=== PATIENT | female | born 1990 | race Caucasian/White ===

== ENCOUNTER 2019-11-15 16:22 | Emergency (ER) | payer OTHER, SELFPAY ==
[2019-11-15 16:31] VITALS: BP 140/78; PULSE 102; RESP 18; TEMP 36.9; O2SAT 99
[2019-11-15] MEDS: TETANUS,DIPHTHERIA,AC PERTUSSIS ADULT 0.5 ML (ADACEL) IM (16:42)
--- NOTE | 2019-11-15 16:42 | ED.LOWEXIN ---
HPI - Extremity Injury (Lower) General Chief Complaint: Extremity Injury, Lower Stated Complaint: foot injury Time Seen by Provider: 11/15/19 16:36 Source: patient and RN notes reviewed Mode of arrival: ambulatory Limitations: no limitations History of Present Illness HPI Narrative: Patient presents today complaining of injury to the right first toe. She stepped on a carpet staple at 1500 today. She had her last tetanus vaccine in 2013. Reports the area stings, but denies any pain. She clean the area, but has not tried any [id number] interventions prior to arrival. Related Data Home Medications Medication Instructions Recorded Confirmed albuterol sulfate [ProAir HFA] 2 inh INHALATION QID 11/15/19 11/15/19 dextroamphetamine-amphetamine 10 mg PO DAILY 11/15/19 11/15/19 venlafaxine 37.5 mg PO DAILY 11/15/19 11/15/19 venlafaxine 75 mg PO DAILY 11/15/19 11/15/19 Allergies Allergy/AdvReac Type Severity Reaction Status Date / Time ibuprofen Allergy Unknown Chest Pain Verified 11/15/19 16:29 morphine Allergy Unknown Numbness Verified 11/15/19 16:29 sumatriptan Allergy Unknown Chest Pain Verified 11/15/19 16:29 rizatriptan AdvReac Mild heart Verified 11/15/19 16:29 racing like a panic attack Review of Systems Review of Systems: Narrative: CONSTITUTIONAL: Denies body aches, fever, chills, or sweats. EYES: Denies visual changes, redness, or discharge. ENT: Denies rhinorrhea, congestion, sore throat, or otalgia. CARDIOVASCULAR: Denies chest pain, palpitations, or edema. RESPIRATORY: Denies cough or dyspnea. GASTROINTESTINAL: Denies abdominal pain, nausea, vomiting, or diarrhea. GENITOURINARY: Denies dysuria or hematuria. SKIN: Denies rash, itching. + Puncture wound to the bottom of the right first toe MUSCULOSKELETAL: Denies back pain, joint pain, or myalgia. NEUROLOGIC: Denies headache, numbness, tingling, or weakness. PSYCH: Denies depression or anxiety. [facility] Social History Social History Smoking status: Never smoker Alcohol intake: current Gender identity (if verbalized by the patient): Female Comments At time of signature, I have reviewed and agree with nursing past medical, surgical, social and family history unless otherwise noted. Please see nursing chart for further information. There is no relevant family history pertinent to the presenting complaint Exam Narrative: Exam Narrative: GENERAL: Well-appearing, well-nourished, and in no acute distress. HEAD: Normocephalic, atraumatic. EYES: EOMI. No redness or drainage. Conjunctivae normal. ENT: Mucous membranes pink and moist. NECK: Normal AROM. CHEST: No respiratory distress. EXTREMITIES: Normal range of motion. No edema. SKIN: Warm, dry, no rash. Capillary refill normal. Normal skin turgor. Tiny puncture wound to the bottom of the right first toe. No edema, ecchymosis, or erythema noted. Distal sensation intact. Capillary refill normal. Pedal pulse normal. NEURO: No focal deficits. Alert and oriented x3. Gait steady. PSYCH: Normal affect. No signs of depression or anxiety. Course Vital Signs Vital signs: Vital Signs Temperature 98.4 F 11/15/19 16:31 Pulse Rate 102 H 11/15/19 16:31 Respiratory Rate 18 11/15/19 16:31 Blood Pressure 140/78 11/15/19 16:31 Pulse Oximetry 99 11/15/19 16:31 Temperature 98.4 F 11/15/19 16:31 Pulse Rate 102 H 11/15/19 16:31 Respiratory Rate 18 11/15/19 16:31 Blood Pressure 140/78 11/15/19 16:31 Pulse Oximetry 99 11/15/19 16:31 Reviewed. Pt has been instructed to follow up with her PCP regarding her elevated blood pressure today. MDM - Extremity Injury (Lower) Differential Diagnosis Differential diagnosis: Likely other (Puncture wound, laceration, skin avulsion, tetanus vaccine) Critical Care Time Critical Care Time Critical Care Time: No Discharge Plan Discharge Clinical Impression:
== END 2019-11-15 17:00 | disposition home or self-care (01) ==
PROVIDERS: Emergency Provider Nurse Practitioner
DX: S91.331A Puncture wound without foreign body, right foot, initial encounter (principal); W22.8XXA Striking against or struck by other objects, initial encounter; Z23 Encounter for immunization
CPT/HCPCS: 90471; 90715; 99212; G0463

== ENCOUNTER 2022-01-13 15:47 | Emergency (ER) | payer OTHER, SELFPAY ==
[2022-01-13 16:04] VITALS: BP 109/92; PULSE 95; RESP 24; TEMP 36.7; O2SAT 98
--- NOTE | 2022-01-13 16:07 | ED.URI ---
HPI - URI/Sore Throat General Chief Complaint: Upper Respiratory Infection Stated Complaint: COUGH Time Seen by Provider: 01/13/22 16:08 Source: patient, RN notes reviewed and old records reviewed Mode of arrival: ambulatory Limitations: no limitations History of Present Illness HPI Narrative: 31-year-old female presents to the [facility] with complaints of a cough. Patient states that she did not feel well on Monday. Developed a cough on Monday. Has been very careful which she takes because she states that a lot of [id number] medications interact with her home medications. MD elicited complaint: cough Related Data Home Medications Medication Instructions Recorded Confirmed albuterol sulfate 90 mcg/actuation 2 inh inhalation QID 11/15/19 11/15/19 aerosol inhaler (ProAir HFA) dextroamphetamine-amphetamine 10 10 mg PO DAILY 11/15/19 11/15/19 mg tablet venlafaxine 75 mg capsule,extended 75 mg PO DAILY 11/15/19 11/15/19 release 24 hr lamotrigine 25 mg tablet mg 01/13/22 Allergies Allergy/AdvReac Type Severity Reaction Status Date / Time ibuprofen Allergy Unknown Chest Pain Verified 01/13/22 16:18 morphine Allergy Unknown Numbness Verified 01/13/22 16:18 sumatriptan Allergy Unknown Chest Pain Verified 01/13/22 16:18 rizatriptan AdvReac Mild heart Verified 01/13/22 16:18 racing like a panic attack Review of Systems Review of Systems: All systems reviewed & are unremarkable except as noted in HPI and below Constitutional: Constitutional: Reports no additional constitutional complaints, Denies chills and Denies fever(s) Eyes: Eyes: Reports no additional eye complaints ENT: Reports system reviewed and no additional complaints, except as documented Cardiovascular: Cardiovascular: Reports no additional cardiovascular complaints Respiratory: Respiratory: Reports as per HPI, Denies chest congestion, Reports cough, Denies dyspnea and Denies wheezing Gastrointestinal: Gastrointestinal: Reports no additional gastrointestinal complaints Musculoskeletal: Musculoskeletal: Reports no additional musculoskeletal complaints Integumentary/Breasts: Skin/Breast: Reports system reviewed and no additional complaints, except as docu Neurologic: Reports system reviewed and no additional complaints, except as documented Psychiatric: Psychiatric: Reports no additional psychiatric complaints Allergic/Immunologic: Allergic/Immunologic: Reports no additional allergic/immunologic complaints [facility] Past Medical History Medical History (Updated 01/13/22 @ 16:36 by Danna Hare APRN) Anxiety Asthma Bronchitis Depression IUD (intrauterine device) in place Migraine Psoriasis UTI (urinary tract infection) Surgical History Surgical History H/O tooth extraction Family History Family History Father Family history of diabetes mellitus in first degree relative Family history of renal failure Patient's father is Mother Family history of malignant neoplasm of breast in first degree relative Other Carcinoma of colon Diabetes mellitus Family history of cardiovascular disease Social History Social History Smoking status: Never smoker Alcohol intake: current Gender identity (if verbalized by the patient): Female Comments At the time of my signature, I reviewed and agree with the nursing past medical, surgical, social, and family history. There is no relevant family history pertinent to the patient complaint. Exam Const: General: healthy appearing, no acute distress and alert Nutritional Appearance: well nourished and obese Orientation/consciousness: patient oriented x3 Limitations: no limitations HENMT: Head: normal to inspection Ears: external ears normal, EAC's normal and TM ab
== END 2022-01-13 16:40 | disposition home or self-care (01) ==
PROVIDERS: Emergency Provider Nurse Practitioner
DX: H65.03 Acute serous otitis media, bilateral (principal); R09.82 Postnasal drip; R05.9 Cough, unspecified; J45.909 Unspecified asthma, uncomplicated; L40.9 Psoriasis, unspecified; F41.9 Anxiety disorder, unspecified; F32.A Depression, unspecified
CPT/HCPCS: 99213; G0463